=== PATIENT | male | born 1945 | race Caucasian/White ===

== ENCOUNTER → 2017-09-04 | Outpatient (CLI) | payer MEDICARE ==
[~2017-09-04] MED LIST: AMIT25TA9 PO; MELO-195 PO; TMZP15C GT
--- NOTE | 2017-09-04 16:44 | Diagnostic Imaging Report ---
INDICATION: Shortness of breath, right-sided chest pain, tobaccoism. EXAMINATION: PA and lateral chest. FINDINGS: The heart size and pulmonary vascularity are normal. The lungs are clear. There are no effusions or pneumothoraces. IMPRESSION: Negative chest. Dictated by: Dictated on workstation # [id number]
== END ==
LOC: RAD 15:50
PROVIDERS: ATTEND Internal Medicine Critical Care Medicine
DX: R07.9 Chest pain, unspecified (principal); R06.00 Dyspnea, unspecified; F17.200 Nicotine dependence, unspecified, uncomplicated
CPT/HCPCS: 71020

== ENCOUNTER → 2017-09-10 | Outpatient (CLI) | payer MEDICARE ==
[~2017-09-10] MED LIST changes: +RT-ALBUTEROL SULF 2.5 MG/3 ML PRE-MIX VIAL IH ONE; +RT-ALBUTEROL SULF 2.5 MG/3 ML PRE-MIX VIAL ONE
== END ==
LOC: RT 13:56
PROVIDERS: ATTEND Nurse Practitioner Family
DX: R06.00 Dyspnea, unspecified (principal); F17.200 Nicotine dependence, unspecified, uncomplicated
CPT/HCPCS: 94060; 94640; 94726; 94729

== ENCOUNTER 2021-10-08 05:42 | Outpatient (CLI) | payer MEDICARE ==
[~2021-10-08] VITALS: Ht 180.3 cm; Wt 72.2 kg
[~2021-10-08 05:42] MED LIST changes: -RT-ALBUTEROL SULF 2.5 MG/3 ML PRE-MIX VIAL IH ONE; -RT-ALBUTEROL SULF 2.5 MG/3 ML PRE-MIX VIAL ONE
[2021-10-08] MEDS ORDERED: GBPN600T PO (15:59)
[2021-10-08] MEDS ORDERED: ASPI-1238 PO (15:59)
== END 2021-10-08 16:01 | disposition home or self-care (01) ==
LOC: PREOP 05:42
PROVIDERS: ATTEND Surgery
DX: Z01.818 Encounter for other preprocedural examination (principal)

== ENCOUNTER 2021-10-10 07:06 | Day surgery (SDC) | payer MEDICARE ==
[2021-10-10] VITALS (13 sets, daily range): BP systolic 104–155; BP diastolic 56–80
[~2021-10-10] VITALS: Ht 180.3 cm; Wt 72.2 kg
[~2021-10-10 07:06] MED LIST changes: +ASPI-1238 PO; +GBPN600T PO
[2021-10-10] MEDS ORDERED: ROCURONIUM 10 MG/ML 5 ML SYRINGE IV ONE (07:08)
[2021-10-10] MEDS ORDERED: LIDOCAINE PF 2% 5 ML (XYLOCAINE) VIAL ONE (07:08)
[2021-10-10] MEDS ORDERED: SEVOFLURANE (ULTANE) 15 ML INHAL SOLN ONE ×3 (07:08→10:16)
[2021-10-10] MEDS ORDERED: proPOfol 200 MG/20 ML (DIPRIVAN) VIAL IV ONE (07:08)
[2021-10-10] MEDS ORDERED: ONDANSETRON 4 MG/2 ML (SDV) Z0FRAN ONE (07:08)
[2021-10-10] MEDS ORDERED: fentaNYL INJ 100 MCG/2 ML AMP ONE (07:08)
[2021-10-10] MEDS ORDERED: MIDAZOLAM 2 MG/2 ML (VERSED) VIAL ONE (07:08)
--- OUTSIDE RECORDS SUMMARY | 2021-10-10 07:12 | XMS REPORT | Clinical Summary ---
Author Author [facility] Organization [facility] Address Unknown Phone Unavailable Care Team Providers Care Sheet Metal Worker Apprentice Name Role Phone Unverified, Unverified PCP Unavailable Maged Almaraz MD Unavailable Jannie SalazarC Unavailable Hillary Lamb OT Unavailable Source Comments Some departments are not documenting in the electronic medical record. If you d o not see the information that you expected, contact Release of Information in [facility] Health Information Management department at [phone] for further assistan ce in locating additional records.[facility] Allergies Comments Active Allergy Reactions Severity Noted Date Tested for as a child, so never taken, so no reaction known Penicillins UNKNOWN 06/10/2008 Medications End Date Status Medication Sig Dispensed Refills Start Date Active vitamins, multiple Cap Take 1 Cap by 0 mouth Daily. Active diclofenac(+) (VOLTAREN) Apply 2 g to 0 1 % gel topical gel affected area four times daily. Active fish oil /omega-3 fatty Take 1 Cap by 0 acids (SEA-OMEGA) mouth daily. 340/1000 mg capsule Active SUVOREXANT (BELSOMRA PO) Take by 0 mouth. 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 Medical History Medical History Date Comments Osteoarthritis Insomnia Melanoma (HCC) Family History Medical History Relation Name Comments Cancer Father Relation Name Status Comments Father Social History Date Tobacco Use Types Packs/Day Years Used Current Every Day Smoker Pipe, Cigars 30 Smokeless Tobacco: Never Used Tobacco Cessation: Ready to Quit: No; Co unseling Given: Yes Comments: pipe at night Comments Alcohol Use Standard Drinks/Week Yes 14 (1 standard drink = 0.6 oz pure alcohol) Sex Assigned at Date Recorded Not on file Last Filed Vital Signs Reading Time Taken Comments Vital Sign 129/67 10/02/2016 1:59 PM CDT Blood Pressure 75 10/02/2016 1:59 PM CDT Pulse 37.1 C (98.8 F) 07/29/2016 2:36 PM CDT Temperature - - Respiratory Rate 98% 06/25/2016 2:45 PM CDT Oxygen Saturation - - Inhaled Oxygen Concentration 69.9 kg (154 lb) 10/02/2016 1:59 PM CDT Weight 182.9 cm (6') 10/02/2016 1:59 PM CDT Height 20.89 10/02/2016 1:59 PM CDT Body Mass Index Plan of Treatment Health Maintenance Due Date Last Done Comments MEDICARE ANNUAL WELLNESS 1943 VISIT DTAP/TDAP VACCINES (1 - 1961 Tdap) HEPATITIS C SCREENING 1961 PHYSICAL (COMPREHENSIVE) 1961 EXAM SHINGLES RECOMBINANT 1993 VACCINE (1 of 2) PNEUMONIA (PPSV23) 2008 VACCINE (1 of 1 - PPSV23) INFLUENZA VACCINE 07/01/2021 Implants Device Identifier Shelf Expiration Date Model / Serial / L ot Implanted Type Area Manufactur er [id number] / N/A / N/A .045 K Wire Right: Thumb NINO Implanted: Qty: 1 on 06/25/2016 by SURGICAL Michelle Ayala MD at [facility] Results Not on filefrom Last 3 Months Insurance Type Payer Benefit Subscriber ID Effective Phone Address Plan / Dates Group Medicare HUMANA MEDICARE HUMANA [id number] 2008- GROUP Present MEDICARE PPO -[id number] Advance Directives Patient Package Worker Explanation Type Date Recorded Advance 06/19/2016 3:51 PM Directive/DPOA
--- OUTSIDE RECORDS SUMMARY | 2021-10-10 07:12 | XMS REPORT | Clinical Summary ---
Author Author [facility] Address Unknown Phone Unavailable Care Team Providers Care Resident Advisor Name Role Phone No, Pcp PROFESSIONAL SKATEBOARDER PP Unavailable Allergies Comments Active Allergy Reactions Severity Noted Date Penicillins 01/07/2016 Medications End Date Status Medication Sig Dispensed Refills Start Date Active amitriptyline (ELAVIL) 25 0 MG tablet 6 Active zolpidem (AMBIEN) 5 MG 0 tablet 5 Active Problems Not on file Social History Date Tobacco Use Types Packs/Day Years Used Current Every Day Smoker Cigarettes Tobacco Cessation: Ready to Quit: No; Co unseling Given: Yes Comments Alcohol Use Standard Drinks/Week Not Asked 0 (1 standard drink = 0.6 o z pure alcohol) Sex Assigned at Date Recorded Not on file Last Filed Vital Signs Reading Time Taken Comments Vital Sign 119/75 01/07/2016 4:47 PM PROCESS STEWARD Blood Pressure 70 01/07/2016 4:47 PM PROCESS STEWARD Pulse 36.7 C (98.1 F) 01/07/2016 4:47 PM PROCESS STEWARD Temperature 12 01/07/2016 4:47 PM PROCESS STEWARD Respiratory Rate 98% 01/07/2016 4:47 PM PROCESS STEWARD Oxygen Saturation - - Inhaled Oxygen Concentration - - Weight - - Height - - Body Mass Index Plan of Treatment Health Maintenance Due Date Last Done Comments Colonoscopy 1983 Results Not on filefrom Last 3 Months Insurance Type Payer Benefit Subscriber ID Effective Phone Address Plan / Dates Group HUMANA HUMANA [id number] 2014-P PPO/ EPO resent Care Teams Start Date End Date Resident Advisor Relationship Specialty 01/07/16 No, Pcp, PROFESSIONAL SKATEBOARDER PCP - General N/A Do not use
[2021-10-10] MEDS ORDERED: LIDOCAINE/EPI 1%-1:100,000 (XYLOCAINE) 20ML ONE (07:15)
[2021-10-10] MEDS ORDERED: ceFAZolin 2 GM IV Premixed 50 ML IV ONE (07:30)
[2021-10-10] MEDS ORDERED: CLINDAMYCIN 600 MG/50 ML IVPB 50 ML IV ONE ×2 (08:10→08:14)
[2021-10-10] MEDS: LACTATED RINGERS 1,000 ML IV PRN ×3 (08:11→10:39)
--- NOTE | 2021-10-10 08:16 | Progress Note-Pre Operative ---
Pre-Operative Progress Note H&P Reviewed The H&P was reviewed, patient examined and no changes noted. Time Seen by Provider: 08:08 Date H&P Reviewed: Oct 10, 2021 Time H&P Reviewed: 08:08 Pre-Operative Diagnosis: right inguinal hernia, possible left MICKEY LEON DO Oct 10, 2021 08:16
[2021-10-10] MEDS ORDERED: PHENYLEPHRINE 100 MCG/ML 10 ML (ANESTHESIA) SYR ONE (09:10)
[2021-10-10] MEDS ORDERED: GLYCOPYRROLATE 0.2 MG/ML (ROBINUL) 2 ML VIAL ONE (10:21)
[2021-10-10] MEDS ORDERED: NEOSTIGMINE 3 MG/3 ML VIAL ONE (10:21)
--- NOTE | 2021-10-10 10:41 | Progress Note-Post Operative ---
Post-Operative Progess Note Surgeon (s)/Lan Specialist (s) Surgeon MICKEY LEON DO Lan Specialist: Riky Pre-Operative Diagnosis right inguinal hernia, possible left Post-Operative Diagnosis right inguinal hernia Indirect Left inguinal hernia -incarcerated indirect with direct component Procedure & Operative Findings Date of Procedure 10/10/21 Procedure Performed/Findings Laparoscopic B/L Inguinal herniarraphy with mesh placement - robotic assisted After informed consent was obtained, the patient was brought to the operating room and placed on the operating table in a supine position. He was sterilely prepped and draped in a normal fashion. Local lidocaine was used to infiltrate the skin above the umbilicus. I made an incision with #11 blade, carried down to the skin into subcutaneous tissue and then deepened down the subcutaneous tissue with Bovie electrocautery down to the fascia. Fascia was incised with Bovie electrocautery and bluntly entered the abdomen, swept a finger around, placed 0 Vicryl [id number] suture and placed limited trocar port under direct visualization. Created pneumoperitoneum, able to visualize the hernia and took a picture of this and then placed two 8 mm ports about 10 cm on either side of the midline port using a local lidocaine, 11 blade for stab incision and then advanced the robotic port under direct visualization. Once this was in, I then placed the patient in Trendelenburg and then placed the working instruments, the fenestrated bipolar and the scissors. Looked on the left side and saw an incarcerated indirect hernia and a direct inguinal hernia. I could see an indirect hernia defect on the right side. Next, I came across the peritoneum approximately 8 cm away from both hernia defects, going across laterally starting at the median umbilical ligament. First I went right and then I went left; since I was going to repair both sides. I then carefully dissected the visceral peritoneum away and down and then in the midline, went through the parietal side and dissected down to the pubic tubercle, dissecting this down carefully pushing the peritoneum away, I was able to then visualize the pubic tubercle and Murali's ligament. I went 2 cm posterior and at this point, we then had a critical view of the dissection, able to dissect 2 cm across the midline on both sides, 2 cm posterior to the Murali's ligament. Started on the right, able to then parietalize the vas deferens and spermatic vessels right at the groove between Murali's and iliac vein and able to dissect, make sure there was no peritoneum between those two, able to see the indirect hernia space, took a picture of this, looked at the femoral space (no hernia seen). Then I carefully teased out the hernia sac and could visualize the indirect hernia space. Next I looked on the cord and cord structures. There was a large cord lipoma that I was able to reduce this and I could clearly see the inguinal canal and the indirect space. I performed this for both sides; carrying the posterior lateral dissection all the way out and then placed two 12 x 17 Midwieght Bard 3DMax mesh: Right sided and Left sided. They laid in nicely, covered the hernia defect and the rest of the area; took a picture of this. It was above the peritoneum, sutured it at the pubic tubercle with a 3-0 Vicryl suture and tied this off. They both appeared to lay in very nicely. I then brought down the pneumoperitoneum to about 8 mmHg and then started closing the peritoneum. Started medially and used a 2-0 V-lock barbed suture to start a running stitch to close the peritoneum; went to the right side first and then brought in another 2-0 V-lock and closed the left side. There was also a hole in the peritoneum on the right, closed this with 3-0 Vicryl two figure of eight stitches. This was closed nicely, took a picture of the closure at this point, then removed all the needles had switched to a suture telephone directory distributor driver from the scissors. The patient was then placed back supine, removed all ports under direct visualization, allowed pneumoperitoneum to escape and then closed the supraumbilical incision, closing the fascia with 0 Vicryl suture previously placed. Copiously irrigated all incisions and then closed the two small 8 mm incisions with two interrupted 4-0 undyed Monocryl subcuticular stitches and closed the supraumbilical incision with three interrupted undyed Monocryl subcuticular stitch. Area was cleaned and dried. Dermabond was placed. The patient tolerated the procedure. The sponge, instrument and needle counts were correct at the end of the case. Dr. Lan assisted during this surgery by making incisions, closing incisions, helping to identify anatomy and passing/retrieving suture and needles. Anesthesia Type GET Estimated Blood Loss Estimated blood loss (mL): less than 10ml Specimens/Packing Specimens Removed none MICKEY LEON DO Oct 10, 2021 10:41
[2021-10-10] MEDS ORDERED: ACHD5005 PO (10:42)
--- NOTE | 2021-10-10 10:43 | Discharge Inst-Surgical ---
Discharge Inst-Surgical Depart Medication/Instructions New, Converted or Re-Newed RX: Transmitted to Pharmacy Patient Instructions Follow up Appt: Make appointment for 1 week. [phone] Instructions: No lifting greater than 20 pounds. No strenuous activity. May shower in 24 hours, no tub bath or soaking. Use incentive spirometer at home as directed. No Smoking Skin/Wound Care: May remove bandages in am. You need to leave the Dermabond on incision it will fall off on it's own. Symptoms to Report: Appetite Changes, Extremity Discoloration, Numbness/Tingling, Swelling Increased, Bleeding Excessive, Eyesight Changes, Pain Increased, Urine Color Change, Constipation(Persistent), Fever over 101 degree F, Pain/Pressure in chest, Urinating Difficulty, Cough Up/Vomit Blood, Heart Beat Irreg/Pounding, Pain/Pressure in jaw, Cramps in feet or legs, Lightheadedness, Pain/Pressure in shoulder, Diarrhea(Persistent), Memory Changes Suddenly, Questions/Concerns, Weight gain consecutive days, Dizziness/Fainting, Nausea/Vomiting, Shortness of Breath, Weight gain over 2 pounds If questions or concerns contact your physician Or seek help at emergency department. Activity Activity as Tolerated: Yes Activity Instructions: Avoid Stress to Incision Driving Instructions: No Driving/Refer to Dr. Noe Discharge Diet: No Restrictions Diet After 24 Hours: Clear Liquid if Nauseous If Any Problems/Questions/Issu: Contact Your Physician, Go to Emergency Room Skin/Wound Care Infection Signs and Symptoms: Increased Redness, Foul Odor of Wound, Increased Drainage, Skin Itchy or Has a Rash, Increased Swelling, Temperature Above 101 F Wound Care Comment: heating pad to shoulder or neck tonight for pain. You can expect some bruising into the penis and scrotum. Bathing Instructions: Shower Stitches/Kristine/Dermabond Dis: Dermabond Ice Pack: Ice On and Off Site MICKEY LEON DO Oct 10, 2021 10:43
[2021-10-10] MEDS ORDERED: MEPERIDINE (DEMEROL) INJ 50 MG/ML IVP ONE ×2 (10:45→14:00)
[2021-10-10] MEDS ORDERED: ONDANSETRON 4 MG/2 ML (SDV) Z0FRAN IVP PRN (10:45)
[2021-10-10] MEDS ORDERED: fentaNYL INJ 100 MCG/2 ML AMP IVP ONE (10:45)
[2021-10-10] MEDS ORDERED: morphine INJ 10 MG/ML 1ML (SYR OR VIAL) IVP ONE (10:45)
--- NOTE | 2021-10-10 11:36 | Anesthesia-General Post-Op ---
General Patient Condition Mental Status/LOC: Same as Preop Cardiovascular: Satisfactory Nausea/Vomiting: Absent Respiratory: Satisfactory Pain: Controlled Complications: Absent Post Op Complications Complications None Follow Up Care/Instructions Patient Instructions None needed. Anesthesia/Patient Condition Patient Condition Patient is doing well, no complaints, stable vital signs, no apparent adverse anesthesia problems. No complications reported per nursing. JAYDA ZARAGOZA CRNA Oct 10, 2021 11:36
[2021-10-10] MEDS ORDERED: HYDROcodone/APAP 5 MG/325 MG (LORTAB) TAB ONE (12:08)
[2021-10-10] MEDS ORDERED: HYDROcodone/APAP 5 MG/325 MG (LORTAB) TAB PO ONE (12:15)
[2021-10-10] MEDS ORDERED: MEPERIDINE (DEMEROL) INJ 50 MG/ML ONE (13:59)
== END 2021-10-10 16:15 | disposition home or self-care (01) ==
LOC: SDC 07:06
PROVIDERS: ATTEND Surgery
DX: K40.30 Unilateral inguinal hernia, with obstruction, without gangrene, not specified as recurrent (principal); K40.90 Unilateral inguinal hernia, without obstruction or gangrene, not specified as recurrent; F17.210 Nicotine dependence, cigarettes, uncomplicated; Z79.899 Other long term (current) drug therapy; Z79.891 Long term (current) use of opiate analgesic; Z79.82 Long term (current) use of aspirin; Z79.1 Long term (current) use of non-steroidal anti-inflammatories (NSAID)
CPT/HCPCS: 49650; 87081; C1781 ×2